=== PATIENT | female | born 1970 | race Caucasian/White ===

== ENCOUNTER → 2017-02-21 | Outpatient (CLI) | payer BC ==
[~2017-02-21] MED LIST: DEPAKOTE 250MG250 MG; DEPAKOTE500 MG; IPRATROPIUM BROM3 M1 IH; KLONOPIN 0.5MG0.5 MG; LEVOXYL0.025 MG; PREDNISONE20 MG PO; RT ADVAIR HFA 1112 G; SINGULAIR 110 MG/TAB; ULTRAM 50MG TAB50 MG
== END ==
LOC: COL.RAD 14:29
DX: R22.0 Localized swelling, mass and lump, head (principal)
CPT/HCPCS: Q9967

== ENCOUNTER → 2017-04-27 | Outpatient (CLI) | payer BC | LOC: MC.RAD 10:20 | DX: Z12.31 Encounter for screening mammogram for malignant neoplasm of breast (principal) ==

== ENCOUNTER → 2018-01-31 | Outpatient (CLI) | payer OTHER, BC | LOC: MHCPAIN 14:33 | DX: G89.29 Other chronic pain (principal); M79.2 Neuralgia and neuritis, unspecified; M79.1 Myalgia; M53.3 Sacrococcygeal disorders, not elsewhere classified; M54.9 Dorsalgia, unspecified | CPT/HCPCS: G0463 ==

== ENCOUNTER → 2018-03-05 | Outpatient (CLI) | payer OTHER, BC | LOC: MHCPAIN 15:34 | DX: G89.29 Other chronic pain (principal); M79.2 Neuralgia and neuritis, unspecified | CPT/HCPCS: G0463 ==

== ENCOUNTER → 2018-05-15 | Outpatient (CLI) | payer BC, OTHER | LOC: MC.RAD 09:37 | DX: Z12.31 Encounter for screening mammogram for malignant neoplasm of breast (principal) ==

== ENCOUNTER → 2018-06-04 | Outpatient (CLI) | payer BC, OTHER | LOC: MHCPAIN 08:10 | DX: G89.29 Other chronic pain (principal); M79.2 Neuralgia and neuritis, unspecified; M79.1 Myalgia | CPT/HCPCS: G0463 ==

== ENCOUNTER 2018-07-24 12:46 | Emergency (ER) | payer BC ==
[~2018-07-24] VITALS: Ht 170.2 cm; Wt 80.9 kg
[2018-07-24 12:51] VITALS: BP 142/73; TEMP 97.8
[2018-07-24] MEDS ORDERED: LIPITOR20 MG PO (13:46)
[2018-07-24 14:01] LABS: BASO # 0.1 (0.0-0.2); BASO % 0.6 % (0.0-2.0); EOS # 0.4 (0.0-0.7); EOS % 3.8 % (0-4.0); GRAN # 4.9 (1.4-6.5); GRAN % 50.7 % (42.2-75.2); HEMOGLOBIN 12.8 g/dl (12.5-16.0); LYMPH # 3.5 (1.2-3.4); LYMPH % 36.4 % (20.0-51.0); MEAN CELL VOLUME 93 fl (80.0-100.0); MEAN CORPUSCULAR HEMOGLOBIN 33 pg (27.0-31.0); MEAN CORPUSCULAR HGB CONC 35 g/dl (33.0-37.0); MEAN PLATELET VOLUME 9.9 fl (7.4-10.4); MONO # 0.7 (0.1-0.6); PLATELET COUNT 200 K/mm3 (130-400); RED BLOOD COUNT 3.88 M/mm3 (4.10-5.30)
[2018-07-24 14:06] LABS: HEMATOCRIT 36.2 % (37.0-47.0)
[2018-07-24 14:20] LABS: TROPONIN-I < 0.012 ng/mL (0.000-0.034)
[2018-07-24 14:27] LABS: ALANINE AMINOTRANSFERASE 18 U/L (9-52); ALBUMIN 3.8 gm/dL (3.5-5.0); ALKALINE PHOSPHATASE 55 U/L (50-136); ANION GAP 11 mmol/L (7-16); AST,SGOT 17 U/L (15-37); BILIRUBIN,TOTAL 0.4 mg/dL (0.0-1.0); BLOOD UREA NITROGEN 22 mg/dL (7-17); C-REACTIVE PROTEIN 0.7 mg/dL (0.0-0.9); CARBON DIOXIDE 27 mmol/L (22-30); CHLORIDE 96 mmol/L (98-107); CREATININE, serum 0.53 mg/dL (0.52-1.25); GLUCOSE 103 mg/dL (74-106); POTASSIUM 3.6 mmol/L (3.4-5.0); SODIUM 134 mmol/L (137-145); TOTAL PROTEIN 6.8 gm/dL (6.4-8.2)
[2018-07-24] MEDS ORDERED: PREDNISONE20 MG PO (15:00)
[2018-07-24 15:04] VITALS: PULSE 64
== END 2018-07-24 15:26 | disposition home or self-care (01) ==
LOC: COL.ER 12:46
PROVIDERS: Emergency Medicine
DX: J45.901 Unspecified asthma with (acute) exacerbation (principal); J18.9 Pneumonia, unspecified organism; F17.210 Nicotine dependence, cigarettes, uncomplicated; Z79.51 Long term (current) use of inhaled steroids
CPT/HCPCS: J2930; J7030

== ENCOUNTER → 2018-09-04 | Outpatient (CLI) | payer BC ==
[~2018-09-04] MED LIST changes: +LIPITOR20 MG PO
== END ==
LOC: MHCPAIN 08:31
DX: G89.29 Other chronic pain (principal); M79.2 Neuralgia and neuritis, unspecified; M54.16 Radiculopathy, lumbar region
CPT/HCPCS: G0463

== ENCOUNTER → 2018-12-04 | Outpatient (CLI) | payer BC | LOC: MHCPAIN 12:33 | DX: G89.29 Other chronic pain (principal); M79.2 Neuralgia and neuritis, unspecified | CPT/HCPCS: G0463 ==

== ENCOUNTER → 2019-04-15 | Outpatient (CLI) | payer BC | LOC: MC.RAD 07:54 | DX: Z12.31 Encounter for screening mammogram for malignant neoplasm of breast (principal); N63.10 Unspecified lump in the right breast, unspecified quadrant ==

== ENCOUNTER → 2019-04-17 | Outpatient (CLI) | payer BC | LOC: MC.RAD 10:19 | DX: N60.01 Solitary cyst of right breast (principal) ==

== ENCOUNTER 2020-05-01 09:44 | Day surgery (SDC) | payer BC ==
[2020-05-01] VITALS (9 sets, daily range): BP systolic 103–151; BP diastolic 53–78; PULSE 56–103; TEMP 97–98.5
[~2020-05-01] VITALS: Ht 170.2 cm; Wt 82.6 kg
[2020-05-01] MEDS ORDERED: LEVOXYL0.125 MG PO (10:20)
[2020-05-01] MEDS ORDERED: DEPAKOTE ER 25250 MG PO (10:21)
[2020-05-01] MEDS ORDERED: FLONASE SENSIM9.9 ML NS (10:21)
[2020-05-01] MEDS ORDERED: D3-5050000 IU PO (10:22)
[2020-05-01] MEDS ORDERED: DEPAKOTE ER 50500 MG PO (10:22)
[2020-05-01] MEDS ORDERED: SINGULAIR 110 MG/TAB PO (10:23)
[2020-05-01] MEDS ORDERED: LIPITOR 10MG10 MG PO (10:23)
[2020-05-01] MEDS ORDERED: PRILOSEC 20MG20 MG PO (10:24)
[2020-05-01] MEDS ORDERED: TYLENOL W/COD1 UDTAB PO (10:24)
[2020-05-01] MEDS ORDERED: ZYRTEC10MGSGL PO (10:24)
--- NOTE | 2020-05-01 10:43 | NUR ---
CHG scrub completed on the operative site.
--- NOTE | 2020-05-01 11:54 | NUR ---
Patient is escorted to the restroom by staff. She voids and returns to room. Denies any other needs at this time.
--- NOTE | 2020-05-01 12:14 | NUR ---
Patient to the OR with VALENTINA Reina at this time.
--- NOTE | 2020-05-01 15:10 | NUR ---
PATIENT ADMITED INTO ROOM 349 POST OP LEFT HIP. LLE DRESSING IS CD&I WITH GAUZE & TEGA. LLE ELEVATED WITH PILLOW. PATIENT HAD ISSUES WITH PAIN IN PACU. PATIENT WAS GIVEN IV PAIN MEDS AND BLOCKED. PAIN IS 2/3 ON PAIN SCALE. PATIENT AMBULATED WITH 2 ASSIST TO BEDSIDE COMMODE TO VOID. PATIENT HAD A HARD TIME CONTROLING HER LLE. PATIENT REMINDED OF TTWB TO LLE AND GOOD. NO C/O N/V. IV FLUIDS INFUSING INTO LEFT FORARM IV. LIQUIDS AT BEDSIDE. HEAD TO TOE ASSESSMENT WNL. SCD'S TO BLE. FRIEND AT BEDSIDE. NO OTHER NEEDS. CALL LIGHT IN REACH.
--- NOTE | 2020-05-01 20:00 | NUR ---
Asssessment complete. Resting in bed. Assissted up to bedside commode, 1 assist. LLE continues numb from block. Reports pain in left groin region. Pain medical device. Requests chocolate milk. Denies other needs at this time.
[2020-05-02] VITALS: BP 134/60; PULSE 73; TEMP 98
[2020-05-02 03:58] VITALS: BP 118/69; PULSE 67; TEMP 97.6
[2020-05-02 07:43] VITALS: BP 109/53; PULSE 77; TEMP 98
[2020-05-02] MEDS ORDERED: ASPI325T6 PO (08:37)
[2020-05-02] MEDS ORDERED: NORCO 325 MG-7.1 TAB PO (08:37)
[2020-05-02] MEDS ORDERED: SENEXON-S 50-81 EACH PO (08:38)
--- NOTE | 2020-05-02 08:52 | NUR ---
Dr Guo here to see patient.
--- NOTE | 2020-05-02 09:23 | NUR ---
Patient alert and oriented, answers questions appropriately. See assessment. LLE with incision dressing CDI. TTWB to LLE. Neuros intact to LLE, no tingling, mild numbness around knee only. Pulses palpable to LLE. Post op exercises reviewed with patient. No c/o at this time.
--- NOTE | 2020-05-02 12:00 | NUR ---
Discharge instructions reviewed with patient and friend, verbalized understanding. Discharged via wheelchair to auto/home with friend at 1145.
--- NOTE | 2020-05-02 13:14 | NUR ---
SW met with patient about DC. Patient reports that she has awalker. Patient shares that her friend Venkata Barrera will support her at home with bathing assist. SW and patient discussed a bathing chair for the shower. SW educated patient on services. [employer] does not cover home health. Patient reports that she uses a cane and a nebulizer. PCP is rpeorted as Dr. Escalona. Patient reports that she fills RX at [facility]. Patient denies any additional concerns. Nothing follows.
== END 2020-05-02 11:45 | disposition home or self-care (01) ==
LOC: SDCO 09:44 → SURG 15:10 → SDCO 05-02 11:45
DX: M87.852 Other osteonecrosis, left femur (principal); M19.90 Unspecified osteoarthritis, unspecified site; F32.9 Major depressive disorder, single episode, unspecified; F41.9 Anxiety disorder, unspecified; K21.9 Gastro-esophageal reflux disease without esophagitis; R56.9 Unspecified convulsions; J45.909 Unspecified asthma, uncomplicated; E89.0 Postprocedural hypothyroidism; Z79.899 Other long term (current) drug therapy; Z88.8 Allergy status to other drugs, medicaments and biological substances; Z91.041 Radiographic dye allergy status; Z80.9 Family history of malignant neoplasm, unspecified; Z83.3 Family history of diabetes mellitus
CPT/HCPCS: OP; C1713; J0690; J1170; J2250; J2270; J2405; J2704; J3010; J7120

== ENCOUNTER → 2021-08-09 | Outpatient (CLI) | payer BC ==
[~2021-08-09] MED LIST changes: +ASPI325T6 PO; +D3-5050000 IU PO; +DEPAKOTE ER 25250 MG PO; +DEPAKOTE ER 50500 MG PO; +FLONASE SENSIM9.9 ML NS; +LEVOXYL0.125 MG PO; +LIPITOR 10MG10 MG PO; +NORCO 325 MG-7.1 TAB PO; +PRILOSEC 20MG20 MG PO; +SENEXON-S 50-81 EACH PO; +SINGULAIR 110 MG/TAB PO; +TYLENOL W/COD1 UDTAB PO; +ZYRTEC10MGSGL PO
== END ==
LOC: MC.RAD 11:20
DX: Z12.31 Encounter for screening mammogram for malignant neoplasm of breast (principal)

== ENCOUNTER → 2022-08-17 | Outpatient (CLI) | payer BC | LOC: MC.RAD 08:09 | DX: Z12.31 Encounter for screening mammogram for malignant neoplasm of breast (principal) ==